=== PATIENT | female | born 1975 | race Caucasian/White ===

== ENCOUNTER 2019-12-09 00:14 | Emergency (ER) | payer OTHER ==
[~2019-12-09 00:14] MED LIST: BENADRYL50 MG PO; PREDNISONE20 MG PO
[2019-12-09 00:44] LABS: HEMATOCRIT 37.1 % (37.0-47.0); HEMOGLOBIN 11.8 g/dL (12.5-16.0); MEAN CELL VOLUME 89 fl (78-100); MEAN CORPUSCULAR HEMOGLOBIN 28 pg (27-31); MEAN CORPUSCULAR HGB CONC 32 g/dL (33-37); MEAN PLATELET VOLUME 10.1 fl (7.4-10.4); PLATELET COUNT 220 K/mm3 (130-400); RED BLOOD COUNT 4.15 M/mm3 (4.10-5.30); RED CELL DISTRIBUTION WIDTH 12.9 % (11.5-14.5); WHITE BLOOD COUNT 4.1 K/mm3 (4.8-10.8)
[2019-12-09 00:53] LABS: LYMPHOCYTE 22 % (20-51); MONOCYTE 17 % (3-10); NEUTROPHILS 60 % (42-75)
[2019-12-09] MEDS ORDERED: EPIPEN 2-PAK1 MG/ML IM (01:32)
[2019-12-09 01:39] VITALS: BP 123/73
== END 2019-12-09 01:40 | disposition home or self-care (01) ==
LOC: ED 00:14
PROVIDERS: Family Medicine
DX: T78.3XXA Angioneurotic edema, initial encounter (principal)
CPT/HCPCS: J0171; J2920; J3490